=== PATIENT | female | born 1995 | race Caucasian/White ===

== ENCOUNTER 2018-11-03 00:26 | Emergency (ER) | payer BC ==
--- NOTE | 2018-11-03 00:35 | EDPHY ---
H & P Stated Complaint: ETOH, cocaine, mech fall down 4 stairs. L ankle pain and swelling Time Seen by Provider: 11/03/18 00:35 HPI/ROS: HPI CHIEF COMPLAINT: Alcohol intoxication, cocaine abuse, left ankle pain. HISTORY OF PRESENT ILLNESS: Patient is a 23-year-old female, she presents to the emergency room by private vehicle after she drank large amount of alcohol tonight, also snorted cocaine. She reports multiple shots of vodka. She states she rolled her left ankle going down the stairs. She now complains of left lateral ankle pain and swelling. Denies any other areas of injury. She arrives with 2 friends at bedside. Denies chest pain or shortness of breath, denies head or neck pain. However, upon arrival, highly intoxicated with alcohol. pain located left lateral ankle, and swelling/ecchymosis. No compartment syndrome. Past Medical History: Asthma Past Surgical History: Denies significant surgical history Social History: Reports a large amount of alcohol tonight and cocaine. Family History: Noncontributory ROS REVIEW OF SYSTEMS: Limited due to acute alcohol intoxication Exam Constitutional intoxicated, smells of alcohol, slurring her speech, triage nursing summary reviewed, vital signs reviewed, awake/alert. Tachycardic Eyes normal conjunctivae and sclera, EOMI, PERRLA. HENT normal inspection, atraumatic, moist mucus membranes, no epistaxis, neck supple/ no meningismus, no raccoon eyes. Respiratory clear to auscultation bilaterally, normal breath sounds, no respiratory distress, no wheezing. Cardiovascular tachycardia, regular rhythm, no murmur, no edema, distal pulses normal. Gastrointestinal soft, non-tender, no rebound, no guarding, normal bowel sounds, no distension, no pulsatile mass. Genitourinary no CVA tenderness. Musculoskeletal left lower extremity swelling and tenderness over the left lateral malleolus. Ecchymosis present. No crepitus. Left foot neurovascular intact with good distal pulse, good cap refill. no midline vertebral tenderness, full range of motion, no calf swelling, no tenderness of extremities, no meningismus, good pulses, neurovascularly intact. Skin pink, warm, & dry, no rash, skin atraumatic. Neurologic awake, alert and oriented x 3, AAOx3, moves all 4 extremities equally, motor intact, sensory intact, CN II-XII intact, normal cerebellar, normal vision, normal speech. Psychiatric normal mood/affect. Heme/Lymph/Immune no lymphadenopathy. Differential Diagnosis: Includes but is not limited to in a particular order left ankle contusion, left ankle sprain, left ankle fracture Medical Decision Making: Plan for this patient x-ray left ankle, ice pack, anti -inflammatory pain medicine, re-evaluate. Re-evaluation: Breath alcohol 0.231. X-ray of the left ankle: Shows no avulsion fracture of the distal fibula. Patient be placed in a walking boot. She is too intoxicated this time 1:45 a.m. To be discharged from the emergency room 3:33 a.m. patient resting comfortably no acute distress she is sober. Placed in walking boot and crutches. She has a small avulsion fracture distal fibula. Recommend she follows up with Orthopedics as been discussed at length. Patient 3:45 a.m. Re-evaluated has a lot of pain with the walking boot. She has no compartment syndrome on exam. Good distal pulse. Given the walking boot is not giving her adequate comfort I will splint her in a posterior short-leg with stirrup. This will give her more support. She is to follow up with Orthopedics. She has an ankle sprain and small fracture. Closed injury. Achilles intact on exam. Good distal pulse, good cap refill, sensation intact Patient placed in Post short leg, stirrup. Neuro intact. good cap refill. good sendation. Comfortable in Splint. Source: Patient - Personal History Current Tetanus/Diphtheria Vaccine: Yes Current Tetanus Diphtheria and Acellular Pertussis (TDAP): Yes - Medical/Surgical History Hx Asthma: Yes Hx Chronic Respiratory Disease: No Hx Diabetes: No Hx Cardiac Disease: No Hx Renal Disease: No Hx Cirrhosis: No Hx Alcoholism: No Hx HIV/AIDS: No Hx Splenectomy or Spleen Trauma: No Other PMH: asthma - Social History Smoking Status: Never smoked Constitutional: Initial Vital Signs Temperature (C) 36.8 C 11/03/18 00:29 Heart Rate 145 H 11/03/18 00:29 Respiratory Rate 20 11/03/18 00:29 Blood Pressure 172/113 H 11/03/18 00:29 O2 Sat (%) 98 11/03/18 00:29 O2 Delivery Mode Room Air Allergies/Adverse Reactions: No Known Allergies Allergy (Unverified 11/03/18 00:29) Home Medications: Medication Instructions Recorded NK [No Known Home Meds] 11/03/18 Medical Decision Making - Data Points Medications Given: Discontinued Medications Acetaminophen (Tylenol) 1,000 mg PO EDNOW ONE Stop: 11/03/18 01:13 Last Admin: 11/03/18 01:14 Dose: 1,000 mg Ibuprofen (Motrin) 600 mg PO EDNOW ONE Stop: 11/03/18 01:13 Last Admin: 11/03/18 01:14 Dose: 600 mg Departure - Departure Disposition: Home, Routine, Self-Care Clinical Impression: Cocaine abuse Alcohol intoxication Qualifiers: Complication of substance-induced condition: uncomplicated Qualified Code(s): F10.920 - Alcohol use, unspecified with intoxication, uncomplicated Ankle fracture Qualifiers: Encounter type: initial encounter Fracture type: closed Laterality: left Qualified Code(s): S82.892A - Other fracture of left lower leg, initial encounter for closed fracture Condition: Good Instructions: Ankle Fracture (ED), Alcohol Intoxication (ED), Abuse of Alcohol (ED) Additional Instructions: 1. Elevate your ankle. 2. Ice. 3. Anti-inflammatory pain medicine. 4. Follow up with Orthopedics as you have a small fracture of your ankle. Referrals: NONE *PRIMARY CARE P,. [Primary Care Provider] - As per Instructions Maxime Mabry MD [Medical Doctor] - As per Instructions
[2018-11-03] MEDS ORDERED: ACETAMINOPHEN 500 MG TAB PO ONE (01:12)
[2018-11-03] MEDS ORDERED: IBUPROFEN 600 MG TAB PO ONE (01:12)
[2018-11-03 04:11] VITALS: BP 125/89
== END 2018-11-03 04:11 | disposition home or self-care (01) ==
PROC: 2W3RX1Z Immobilization of Left Lower Leg using Splint (ICD-10-PCS; principal; 2018-11-03)
DX: S82.892A Other fracture of left lower leg, initial encounter for closed fracture (principal); F10.920 Alcohol use, unspecified with intoxication, uncomplicated; X50.0XXA Overexertion from strenuous movement or load, initial encounter; J45.909 Unspecified asthma, uncomplicated
CPT/HCPCS: L4386